=== PATIENT | male | born 1960 | race Caucasian/White ===

== ENCOUNTER → 2019-07-16 15:31 | Outpatient (CLI) | payer OTHER, SELFPAY ==
[2019-07-16 17:24] LABS: PSA,Total- Diagnostic 5.64 ng/mL (0.0-4.0)
== END ==
PROVIDERS: PCP Nurse Practitioner Primary Care
DX: R97.20 Elevated prostate specific antigen [PSA] (principal)
CPT/HCPCS: 36415; 84153

== ENCOUNTER → 2019-08-19 | Outpatient (CLI) | payer OTHER, SELFPAY ==
--- NOTE | 2019-08-18 08:01 | PROSBIL_PTH ---
PATIENT: PATRICIA SANDS Jr. LOC: [facility] U#:[id number] AGE/SX: 58/M ROOM: RE08/19/[address]: Dr. Homer Roman MD : [id number] BED: DIS: 08/19/2019 SPEC #: [id number] RECD: 08/18/19 11:11 STATUS: EROS REJanay #: [id number] ROYCE: 08/18/19 08:[address]: Homer Roman DEPT: SURGICAL PATHOLOGY RECD BY: Hany Clark ENTERED: 08/19/19 09:05 SP TYPE: PROST BX BERT DR: Hany Pablo, SAP PP CONSULTANTYesika Tissues: A - PROSTATE RIGHT B - PROSTATE RIGHT C - PROSTATE RIGHT D - PROSTATE LEFT E - PROSTATE LEFT F - PROSTATE LEFT Procedures: PROSTATE BX HEADER OPERATION: Prostate biopsy PRE-OP DIAGNOSIS: Elevated PSA TISSUE SUBMITTED: A - Right apex, B - Right mid, C - Right base, D - Left apex, E - Left mid, F - Left base MICROSCOPIC DIAGNOSIS A. Right prostate, apex, core biopsy: Benign prostatic tissue. B. Right prostate, mid, core biopsy: Mild chronic inflammation. Focal high-grade prostatic intraepithelial neoplasia (HGPIN). C. Right prostate, base, core biopsy: Focal high-grade prostatic intraepithelial neoplasia (HGPIN). D. Left prostate, apex, core biopsy: Mild chronic inflammation with focal acute inflammation. E. Left prostate, mid, core biopsy: Chronic inflammation with focal acute inflammation. F. Left prostate, base, core biopsy: Focal high-grade prostatic intraepithelial neoplasia (HGPIN). Chronic inflammation. AM:nolvia 08/19/19 COMMENT Case has been reviewed in consultation with Dr. Wesley who concurs with the above diagnosis. IDC:[email or web address] MICROSCOPIC DESCRIPTION Slides are reviewed. GROSS DESCRIPTION A - Received is one container designated prostate, right apex. The specimen consists of one elongated fragment of light jerome-white soft tissue measuring 1.5 cm in length and 0.1 cm in diameter. The specimen is totally submitted in one cassette. B - Received is one container designated prostate, right mid. The specimen consists of two elongated fragments of light jerome-white soft tissue each measuring 1.5 cm in length and 0.1 cm in diameter. The specimen is totally submitted in one cassette. C - Received is one container designated prostate, right base. The specimen consists of two elongated fragments of light jerome-white soft tissue measuring 1.2 and 1.5 cm in length and 0.1 cm in diameter. The specimen is totally submitted in one cassette. D - Received is one container designated prostate, left apex. The specimen consists of one elongated fragment of light jerome-white soft tissue measuring 1.5 cm in length and 0.1 cm in diameter. The specimen is totally submitted in one cassette. E - Received is one container designated prostate, left mid. The specimen consists of three elongated fragments of light jerome-white soft tissue measuring 0.4 to 1.5 cm in length and 0.1 cm in diameter. The specimen is totally submitted in one cassette. F - Received is one container designated prostate, left base. The specimen consists of two elongated fragments of light jerome-white soft tissue measuring 0.8 and 1 cm in length and 0.1 cm in diameter. The specimen is totally submitted in one cassette. / SJ:rg 08/18/19 TC:2 CPT: 77412 x6
== END | disposition home or self-care (01) ==
LOC: LABSPEC 08:40
PROVIDERS: PCP Nurse Practitioner Primary Care; Visit Provider Urology
DX: R97.20 Elevated prostate specific antigen [PSA] (principal)
CPT/HCPCS: 88305; G0416

== ENCOUNTER → 2020-03-01 15:01 | Outpatient (CLI) | payer OTHER, SELFPAY ==
--- NOTE | 2020-03-01 15:09 | MRI_ITS ---
STUDY: MRI LUMBAR SPINE WITHOUT CONTRAST REASON FOR EXAM: Male, 59 years old. radiculopathy. LBP, bilat leg weakness TECHNIQUE: Standardized fat and water weighted pulse sequences were obtained in the sagittal and axial planes. COMPARISON: None FINDINGS: T12-L1: Normal endplates. Normal disc height, hydration and morphology. Normal bilateral facet joints. Normal central canal and bilateral lateral recesses. Normal bilateral intervertebral neural foramina. Normal lumbar lordosis. There is no substantial scoliosis. Normal conus medullaris that terminates at the T12/L1. L1-2: Normal endplates. Normal disc height, hydration and morphology. Normal bilateral facet joints. Normal central canal and bilateral lateral recesses. Normal bilateral intervertebral neural foramina. L2-3: Normal endplates. Normal disc height, hydration and morphology. Normal bilateral facet joints. Normal central canal and bilateral lateral recesses. Normal bilateral intervertebral neural foramina. L3-4: Mild bilobed disc protrusion produces mild spinal stenosis and mild bilateral neural foraminal stenosis. L4-5: Mild bilateral facet hypertrophy and moderate ligament flavum hypertrophy. Mild broad disc protrusion produces mild spinal stenosis with mild bilateral lateral recess stenosis and moderate bilateral neural foraminal stenosis with abutment of the exiting L4 nerve roots bilaterally. L5-S1: Normal endplates. Normal disc height, hydration and morphology. Normal bilateral facet joints. Normal central canal and bilateral lateral recesses. Normal bilateral intervertebral neural foramina. Normal visualized sacral ala. Normal visualized paraspinous soft tissue structures. MRI/Spine Lumbar (Routine) IMPRESSION: Multilevel degenerative changes, as described above. Electronically Signed: Jorje Gil MD at 8:59 EST Tel , Service support ,
== END ==
PROVIDERS: PCP Nurse Practitioner Primary Care; Referring Provider Chiropractor; Visit Provider Chiropractor
DX: M54.16 Radiculopathy, lumbar region (principal); M62.830 Muscle spasm of back
CPT/HCPCS: 72148

== ENCOUNTER → 2020-03-08 15:31 | Outpatient (CLI) | payer OTHER, SELFPAY ==
[2020-03-08 17:16] LABS: PSA,Total- Diagnostic 6.73 ng/mL (0.0-4.0)
== END ==
PROVIDERS: PCP Nurse Practitioner Primary Care; Referring Provider Urology; Visit Provider Urology
DX: R97.20 Elevated prostate specific antigen [PSA] (principal)
CPT/HCPCS: 36415; 84153

== ENCOUNTER → 2021-07-04 | Outpatient (CLI) | payer OTHER, SELFPAY ==
[2021-07-04 16:44] LABS: PSA,Total- Diagnostic 6.56 ng/mL (0.0-4.0)
== END | disposition home or self-care (01) ==
LOC: LAB 15:55
PROVIDERS: PCP Nurse Practitioner Primary Care; Visit Provider Urology
DX: R97.20 Elevated prostate specific antigen [PSA] (principal)
CPT/HCPCS: 36415; 84153